=== PATIENT | female | born 1985 | race African-American/Black ===

== ENCOUNTER 2016-06-23 11:25 | Emergency (ER) | payer SELFPAY ==
[~2016-06-23] VITALS: Ht 167.6 cm; Wt 74.0 kg
[~2016-06-23 11:25] MED LIST: LISI1TAB9 PO
[2016-06-23] MEDS ORDERED: HYDR25TA PO (11:42)
[2016-06-23] MEDS ORDERED: KETOROLAC TROMETHAMINE 60 MG/2 ML VIAL IM ONE (12:30)
[2016-06-23 13:15] VITALS: BP 155/109
== END 2016-06-23 13:17 | disposition home or self-care (01) ==
LOC: EMS 11:27
DX: B86 Scabies (principal); K08.89 Other specified disorders of teeth and supporting structures; I10 Essential (primary) hypertension
CPT/HCPCS: 96372; 99283; J1885

== ENCOUNTER 2017-03-06 20:55 | Emergency (ER) | payer SELFPAY ==
[~2017-03-06] VITALS: Ht 172.7 cm; Wt 72.7 kg
[~2017-03-06 20:55] MED LIST changes: +HYDR25TA PO
[2017-03-06] MEDS ORDERED: CLINDAMYCIN HCL 150 MG CAPSULE PO ONE (22:15)
[2017-03-06] MEDS ORDERED: IBUPROFEN 800 MG TABLET PO ONE (22:15)
[2017-03-06 22:43] VITALS: BP 150/100
== END 2017-03-06 22:47 | disposition home or self-care (01) ==
LOC: EMS 20:56
DX: K04.7 Periapical abscess without sinus (principal); K02.9 Dental caries, unspecified; I10 Essential (primary) hypertension; Z90.49 Acquired absence of other specified parts of digestive tract; Z98.84 Bariatric surgery status
CPT/HCPCS: 99283